=== PATIENT | female | born 1995 | race Caucasian/White ===

== ENCOUNTER 2016-08-28 19:29 | Emergency (ER) | payer MEDICAID ==
[2016-08-28 19:55] VITALS: RESP 16
[2016-08-28 20:19] LABS: BASO # 0.1 K/uL (0.0-0.2); BASO % 0.4 % (0.0-2.0); EOS # 0.1 K/uL (0.0-0.7); EOS % 0.8 % (0.0-4.0); HEMATOCRIT 37.9 % (34.0-47.0); LYMPH # 2.2 K/uL (1.0-4.3); LYMPH % 19.3 % (20.0-40.0); MEAN CORPUSCULAR HGB CONC 32.7 g/dL (33.0-37.0); MEAN PLATELET VOLUME 9.4 fL (7.2-11.7); MONO % 8.9 % (0.0-10.0); RED CELL DISTRIBUTION WIDTH 15.9 % (11.5-14.5); WHITE BLOOD COUNT 11.6 K/uL (4.8-10.8)
[2016-08-28] MEDS ORDERED: Sodium Chloride 0.9% 1,000 ML IV ONE (20:21)
--- NOTE | 2016-08-28 20:21 | C.PDOC ---
History Of Present Illness 21 year old female, P:0 and currently 19 weeks , presents to the ED with complaints of vaginal bleeding with mild abdominal cramping starting today. Patient states she also has some back pain and denies fever, chills, nausea, vomiting, or any other complaints at this time. Time Seen by Provider: 08/28/16 20:21 Chief Complaint (Nursing): Abdominal Pain History Per: Patient History/Exam Limitations: no limitations Onset/Duration Of Symptoms: Hrs Current Symptoms Are (Timing): Still Present Context: Other Severity: Mild Pain Scale Rating Of: 3 Location Of Pain/Discomfort: Suprapubic Radiation Of Pain To:: None Quality Of Discomfort: Cramping Associated Symptoms: Back Pain. denies: Fever, Chills, Nausea, Vomiting, Urinary Symptoms Alleviating Factors: None Last Bowel Movement: Today Recent travel outside of the [place]: No Additional History Per: Family Abnormal Vaginal Bleeding: Yes Past Medical History Reviewed: Historical Data, Nursing Documentation, Vital Signs Vital Signs: Last Vital Signs Temp 98.1 F 08/28/16 19:52 Pulse 87 08/28/16 19:52 Resp 16 08/28/16 19:52 BP 115/68 08/28/16 19:52 Pulse Ox 100 08/28/16 21:51 - Medical History PMH: Migraine Family History: States: No Known Family Hx - Social History Hx Alcohol Use: No Hx Substance Use: No - Immunization History Hx Tetanus Toxoid Vaccination: No Hx Influenza Vaccination: No Hx Pneumococcal Vaccination: No Review Of Systems Constitutional: Negative for: Fever, Chills Cardiovascular: Negative for: Chest Pain, Palpitations Respiratory: Negative for: Cough, Shortness of Breath Gastrointestinal: Positive for: Abdominal Pain. Negative for: Nausea, Vomiting , Diarrhea Genitourinary: Positive for: Vaginal Bleeding. Negative for: Dysuria, Frequency Musculoskeletal: Positive for: Back Pain. Negative for: Neck Pain Neurological: Negative for: Weakness, Numbness Physical Exam - Physical Exam Appears: Non-toxic, No Acute Distress Skin: Warm, Dry Eye(s): bilateral: Normal Inspection Oral Mucosa: Moist Neck: Supple Chest: Symmetrical, No Deformity Cardiovascular: Rhythm Regular, No Murmur Respiratory: No Rales, No Rhonchi, No Wheezing Gastrointestinal/Abdominal: Soft, No Tenderness, Distention, Other (+Gravid) Back: Normal Inspection Extremity: Normal ROM Extremity: Bilateral: Atraumatic, Normal Color And Temperature, Normal ROM Neurological/Psych: Oriented x3, Normal Speech, Normal Cognition Gait: Steady ED Course And Treatment - Laboratory Results Result Diagrams: 08/28/16 20:11 08/28/16 20:11 O2 Sat by Pulse Oximetry: 100 (Room air) Pulse Ox Interpretation: Normal - CT Scan/US Pelvis US Other Rad Studies (CT/US): Read By Radiologist, Radiology Report Reviewed CT/US Interpretation: FINDINGS: Fetus: Fetus is breech in position. Heart rate measured at 144 bpm. Placenta: Posterior. No abruption. Cervix: Closed. Measured at 3.1 cm. BIOMETRICS. Gestational age by US: 19 weeks 6 days +/-1 week 3 days. EFW: 11 oz +/- 2 oz. IMPRESSION: Limited evaluation of single live IUP as above. Progress Note: Pelvis US, Blood work, and Urinalysis ordered and reviewed. Reevaluation Time: 21:59 Reassessment Condition: Improved Disposition Counseled Patient/Family Regarding: Studies Performed, Diagnosis - Disposition Disposition: HOME/ ROUTINE Disposition Time: 20:21 Condition: FAIR Instructions: Threatened Miscarriage (ED) - Clinical Impression Clinical Impression: Threatened - Scribe Statement The provider has reviewed the documentation as recorded by the Scribe Jcarlos Burns. Provider Attestation: All medical record entries made by the Scribe were at my direction and personally dictated by me. I have reviewed the chart and agree that the record accurately reflects my personal performance of the history, physical exam, medical decision making, and the department course for this patient. I have also personally directed, reviewed, and agree with the discharge instructions and disposition.
[2016-08-28 20:27] LABS: CHLORIDE 101 mmol/L (98-107)
[2016-08-28 20:28] LABS: MEAN CELL VOLUME 85.6 fL (81.0-99.0); POTASSIUM 3.6 mmol/L (3.6-5.2); SODIUM 134 mmol/L (132-148)
[2016-08-28 20:30] LABS: AST/SGOT 34 U/L (14-36); BILIRUBIN,TOTAL 0.2 mg/dL (0.2-1.3); BLOOD UREA NITROGEN 10 mg/dL (7-17); CARBON DIOXIDE 22 mmol/L (22-30); GFR AFRICAN-AMERICAN > 60; TOTAL PROTEIN 7.6 g/dL (6.3-8.3)
[2016-08-28 20:31] LABS: ALKALINE PHOSPHATASE 72 U/L (38-126); ALT/SGPT 44 U/L (9-52); CALCIUM 8.8 mg/dl (8.6-10.4); GLUCOSE,RANDOM 74 mg/dL (65-105)
[2016-08-28] MEDS ORDERED: Sodium Chloride 0.9% 1,000 ML ONE (20:31)
[2016-08-28 20:54] LABS: INR 1.1
[2016-08-28 21:01] LABS: RBC URINE 2 /hpf (0-3); URINE BACTERIA OCC (<OCC); URINE BILIRUBIN NEGATIVE (NEGATIVE); URINE BLOOD NEGATIVE (NEGATIVE); URINE COLOR Yellow (YELLOW); URINE GLUCOSE (UA) NORMAL (Normal); URINE KETONE NEGATIVE (NEGATIVE); URINE LEUKOCYTE ESTERASE NEG Leu/uL (Negative); URINE PROTEIN NEGATIVE (NEGATIVE); URINE UROBILINOGEN NORMAL mg/dL (0.2-1.0); WBC URINE 4 /hpf (0-5)
[2016-08-28 22:16] VITALS: BP 121/74; PULSE 81; TEMP 98; O2SAT 99
--- NOTE | 2016-08-29 18:12 | US ---
PROCEDURE: OB ultrasound 08/29/2016 COMPARISON: No prior TECHNIQUE: Transabdominal sonographic evaluation of the gravid uterus performed FINDINGS: Current study reveals a single living intrauterine gestation. The placenta is posteriorly located free of the cervical os. Cervical os measures approximately 3.1 cm and appears closed. Fetus is breech in presentation. BPD = 4.75 cm = 20 weeks 3 days HC = 17.13 cm = 19 weeks 5 days AC =14.5 cm = 19 weeks 6 day FL = 30.3 cm = 19 weeks 3 day Average ultrasound age 19 weeks 3 days plus or minus 1 week 3 days Heart rate detected at 144 BPM. No free fluid seen in the cul de sac. Neither adnexa visualized IMPRESSION: Single living intrauterine gestation at approximately 15 weeks 1 day as above.
== END 2016-08-28 22:15 | disposition home or self-care (01) ==
LOC: C.ER 19:29
DX: O20.0 Threatened abortion (principal); Z3A.19 19 weeks gestation of pregnancy
CPT/HCPCS: 76815; 80053; 81001; 84702; 84703; 85025; 85610; 85730; 86850; 86900; 96360; 99285; J7040